=== PATIENT | male | born 1960 | race Caucasian/White ===

== ENCOUNTER 2016-04-13 08:57 | Day surgery (SDC) | payer OTHER ==
[~2016-04-13 08:57] MED LIST: LIDOCAINE W/ SODIUM BICARB 0.5 ML SYR ONE; Lactated Ringers 1,000 ML PRIMARY IV ONE; ceFAZolin Inj 2gm (Premix) 50 ML IV ONE
[2016-04-13] MEDS ORDERED: LIDOCAINE 2%/ EPI 1:200,000 - 20 ML VIAL ONE (12:00)
[2016-04-13] MEDS ORDERED: fentaNYL Inj 250 MCG/5 ML VIAL ONE (12:00)
[2016-04-13] MEDS ORDERED: BUPIVACAINE 0.5% W/EPI MPF -30 ML VIAL IV ONE (12:01)
[2016-04-13] MEDS ORDERED: ceFAZolin Inj 3 GM in Sodium Chloride 0.9% 100 ML IV PRN (12:17)
[2016-04-13 12:57] LABS: HIV ANTIBODY NEGATIVE (N); HIV-1 P24 ANTIGEN NEGATIVE (N)
[2016-04-13] MEDS ORDERED: LIDOCAINE 2% 20 MG/ML - 20 ML VIAL ONE (13:00)
--- NOTE | 2016-04-13 13:08 | CRNA.PROCE ---
Nerve Block Documentation - - Safety Measures: Time Out Taken, Site Verified - - Type of Nerve Block Used: Left Popliteal Fossa Block Position for Nerve Block: Prone Moniters Used During Block: EKG, SPO2, NIBP Oxygen Sumpplented: Yes Sedation Used - Enter Amount in Comment Field: Midazolam (mg): Yes, Fentanyl ( mcg): Yes (50mcg), Other Sedation: Yes (propofol 50mg iv) Skin Prep Used: ChloroPrep Technique: Nerve Stimulator Nerve Block Needle Used: 80 mm ProBlk II Stimulation Hz: 1.0 Stimulation Staring mA: 1.4 Stimulation Ending mA: 0.5 Local Anesthetic - Enter Amt in Comment Field: 0.5 % Bupivicaine with Epinephrine 1:200,000 (mL): Yes (20ml), 2 % Xylocaine with Epinephrine 1:200, 000 (mL): Yes (20ml)
[2016-04-13] MEDS ORDERED: Lactated Ringers 1,000 ML PRIMARY IV ONE (13:28)
[2016-04-13] MEDS ORDERED: KETOROLAC 30 MG/1 ML VIAL ONE (14:11)
[2016-04-13] MEDS ORDERED: HYDROcodone-APAP 10 MG-325 MG TABLET PO PRN (14:13)
[2016-04-13] MEDS ORDERED: NORMAL SALINE 10 ML SYRINGE FLUSH IVP PRN (14:13)
[2016-04-13] MEDS ORDERED: IBUPROFEN 800 MG TABLET PO SCH (14:30)
[2016-04-13 15:54] VITALS: RESP 16
[2016-04-13 15:57] VITALS: TEMP 97.7
[2016-04-14 15:19] LABS: HCV AB SCREEN Negative (Negative); HEPATITIS B SURF AB QL Negative (())
--- NOTE | 2016-04-19 07:56 | GEN.OPNOTE ---
Operative Report Surgeon: Darinel Atkins DPM Anesthesia Type: Regional, MAC Anesthesia Provider: Sergio Bo CRNA Surgery Date: 04/13/16 Preoperative Diagnosis: 1. Traumatic rupture of peroneal tendon of left foot. 2. Left foot pain. Postoperative Diagnosis: 1. Left foot pain. 2. Fracture of os peroneum Procedure: Left peroneus longus tenolysis. cpt 78435 Estimated Blood Loss (mL): 10 (A pneumatic cuff was used about the calf at 250mm Hg pressure.) Fluids: 3 g Ancef given prior to start, lactated Ringer's by IV Complications: None Findings at Surgery: The peroneus longus and peroneus brevis tendons of the left foot where intact. The peroneus longus tendon had a large contusion within its fibers associated with the os peroneum. However the tendon was very much intact and functioning. Indications for the Procedure: Left foot pain and a preoperative MRI which showed what appeared to be rupture of the peroneus longus tendon with a 2 centimeter gap. Description of Procedure: The patient was brought to the operating room and placed in the supine position. They had already been given a popliteal block of the lower extremity , and MAC was continued. The foot was prepped and draped in the usual sterile fashion. A timeout was performed. The fibular malleolus, the base of the fifth metatarsal, the course of the peroneal tendons were marked on the left foot. The foot and lower leg were then exsanguinated with an elastic Esmarch, after which a pneumatic cuff was inflated about the calf to 250 mmHg pressure. Incision made from the base of the fifth metatarsal to the tip of the fibular malleolus. This is deepened by sharp and blunt dissection using a Bovie as needed. Slow careful dissection was then performed. The sural nerve was identified and was noted to course with the peroneal tendons and then branched prior or at the level of the cuboid into 4 main branches. This nerve was carefully dissected away from the area of interest and retracted and protected during surgery. The peroneus longus was carefully identified and the tendon sheath incised by slipping a [place] elevator into a to protect the tendon. On examination of the peroneus longus tendon the tendon was not ruptured but was intact. There was a large contusion within the fibers of the peroneus longus tendon associated with the os peroneum. Tension was carefully placed on the tendon and it was intact. The large amount of contusion which likely represents os peroneum injury and would be associated with the 2 cm of presumed rupture of the tendon on MRI. The wound was irrigated. The peroneus brevis tendon was also intact and left within its sheath. It is also noted of the peroneus longus tendon was approximated 3 times the size of the peroneus brevis tendon along its entire course. The peroneus longus tendon sheath was then repaired with 4-0 Vicryl. The subcutaneous tissues were closed in layers after which a skin was closed with 4-0 nylon suture. This is then reinforced with Mastisol and Steri-Strips. And a dressing of Xeroform, fluffs, Kerlix, Coban was then applied to the left foot. Simeon will be kept on Limited to nonweightbearing ambulation with crutches for protection. With recommendation to let the os peroneum injury/fracture continue to heal over the next 4-10 weeks. And his first dressing change will be next week. The pneumatic cuff was released from the left calf and capillary return was noted to all toes.
== END 2016-04-13 15:45 | disposition home or self-care (01) ==
LOC: SDSC 08:57
PROVIDERS: ATTEND Podiatrist Foot & Ankle Surgery
DX: S86.312A Strain of muscle(s) and tendon(s) of peroneal muscle group at lower leg level, left leg, initial encounter (principal)
CPT/HCPCS: 28220; 36415; 86703; 86706; 86803; J0690; J1885; J2704; J3010; S0020; J2001; J7050; J7120